=== PATIENT | female | born 1970 | race Caucasian/White ===

== ENCOUNTER 2017-02-14 08:04 | Emergency (ER) | payer MEDICAID ==
[~2017-02-14] VITALS: Ht 162.6 cm; Wt 82.2 kg
[2017-02-14] MEDS ORDERED: SODIUM CHLORIDE 0.9% 1,000 ML IV ONE (08:29)
[2017-02-14] MEDS ORDERED: FAMOTIDINE 20 MG/2 ML IVP ONE (08:30)
[2017-02-14] MEDS ORDERED: SODIUM CHLORIDE FLUSH 10ML SYR IVF ONE (08:30)
[2017-02-14] MEDS ORDERED: ONDANSETRON 2MG/ML, 2ML IVPush ONE (08:30)
[2017-02-14] MEDS ORDERED: ONDANSETRON 2MG/ML, 2ML ONE (08:48)
[2017-02-14] MEDS ORDERED: FAMOTIDINE 20 MG/2 ML ONE (08:48)
[2017-02-14 09:01] LABS: ASPARTATE AMINO TRANSFERASE 20 U/L (15-37); BLOOD UREA NITROGEN 15 mg/dL (7-18)
[2017-02-14 09:24] LABS: PATH.CAST-FLAG NOT PRESENT; SPERM-FLAG NOT PRESENT; SRC-FLAG NOT PRESENT; XTAL-FLAG NOT PRESENT; YLC-FLAG NOT PRESENT
[2017-02-14 10:23] VITALS: BP 176/94
== END 2017-02-14 10:30 | disposition home or self-care (01) ==
LOC: ED 08:50
DX: K29.20 Alcoholic gastritis without bleeding (principal); R10.13 Epigastric pain
CPT/HCPCS: 36415; 76700; 80053; 81001; 83690; 84703; 85025; 86677; 96361; 96374; 96375; 99285; J2405; J7030; S0028